=== PATIENT | male | born 1945 | race Caucasian/White ===

== ENCOUNTER → 2025-02-28 | Outpatient (CLI) | payer MEDICARE, OTHER, SELFPAY ==
--- NOTE | 2025-02-28 11:17 | NEURO_ITS ---
NCS and/or EMG Patient Report Ordering Doctor: Wilmar Trinh DATE OF SERVICE: 02/28/25 David presents with complaints of numbness and tingling in the legs. Electrodiagnostic findings: Peroneal motor nerve demonstrates normal distal latency, amplitude and conduction velocity bilaterally. Reduced right tibial mo tor amplitude. Left tibial motor response is within normal limits. Prolonged tibial and peroneal F?waves bilaterally. H?reflexes are within normal limits. Sensory responses were not obtainable. Needle EMG testing was performed the lower limbs. All muscles tested showed no evidence of denervation with normal motor unit action potentials. Electrodiagnostic impression: This is an abnormal study in the lower limbs. 1. Electrodiagnostic findings are suggestive of peripheral polyneuropathy, sensory greater than motor. 2. No electrodiagnostic evidence is noted for lumbosacral radiculopathy Multi Select Codes Neurology Neurology Interp Codes: 08353-06 Musc test done w/n test comp (interp) (2) and 93720-79 Nrv cndj test 9-10 studies (interp)
== END | disposition home or self-care (01) ==
LOC: PSN 08:21
PROVIDERS: PCP Family Medicine; Referring Provider Student in an Organized Health Care Education/Training Program; Visit Provider Student in an Organized Health Care Education/Training Program
DX: M54.16 Radiculopathy, lumbar region (principal); G60.8 Other hereditary and idiopathic neuropathies
CPT/HCPCS: 95886; 95911